=== PATIENT | female | born 1980 | race African-American/Black ===

== ENCOUNTER 2018-12-08 00:04 | Emergency (ER) | payer OTHER ==
[~2018-12-08] VITALS: Ht 167.6 cm; Wt 118.8 kg
[2018-12-08 00:45] LABS: CALCIUM 8.3 mg/dL (8.5-10.1); CREATININE 0.8 mg/dL (0.6-1.3); POTASSIUM 3.7 mmol/L (3.5-5.1)
[2018-12-08 01:40] VITALS: BP 126/98
== END 2018-12-08 01:40 ==
LOC: M.ERS 00:04
PROVIDERS: Emergency Medicine Emergency Medical Services
DX: M79.89 Other specified soft tissue disorders (principal)

== ENCOUNTER → 2019-08-17 | Emergency (ER) | payer OTHER ==
[~2019-08-17] VITALS: Ht 167.6 cm; Wt 109.8 kg
[2019-08-17 19:26] VITALS: BP 123/78
--- NOTE | 2019-08-18 12:56 | EKG ---
[place] [address] ELECTROCARDIOGRAM REPORT Name: RAYNA PUGH Room: [facility]#: [id number] Admission: 08/17/19 Attend Phys: Discharge: Date of : 82 Date of Service: 08/17/191927 Report #: [id number] THIS REPORT FOR: //name// [facility] ED Test Date: 2019-08-17 Test Time: 19:28:18 Pat Name: RAYNA PUGH Department: Room: Gender: F [employer]: CCD : 1980 Requested By: Kennedy Garsia Order Number: [id number] MD: Karsten Weller Measurements Intervals [place] Rate: 83 P: 26 VA: 132 QRS: 12 QRSD: 88 T: 31 QT: 385 QTc: 453 Interpretive Statements Sinus rhythm Baseline wander in lead(s) V4 No previous ECG available for comparison Electronically Signed On 08-18-2019 12:54:08 CDT by Karsten Weller [email or web address] <ELECTRONICALLY SIGNED> By: Karsten Weller MD, [facility] 08/18/19 1254 27 27 Karsten Weller MD, FACC /EPI
== END ==
LOC: M.ERS 19:22
DX: F41.9 Anxiety disorder, unspecified (principal)

== ENCOUNTER 2020-08-14 12:33 | Emergency (ER) | payer OTHER ==
[~2020-08-14] VITALS: Ht 167.6 cm; Wt 121.1 kg
[2020-08-14 12:37] VITALS: BP 138/90
[2020-08-14] MEDS ORDERED: METHOCARBAMOL500 M2 PO (12:47)
[2020-08-14] MEDS ORDERED: LIDODERM1 EACH TOP (12:47)
== END 2020-08-14 13:15 | disposition home or self-care (01) ==
LOC: M.ERS 12:33
DX: M62.830 Muscle spasm of back (principal); M54.6 Pain in thoracic spine; Z98.890 Other specified postprocedural states